=== PATIENT | female | born 1975 | race Two or more races ===

== ENCOUNTER 2018-05-31 11:41 | Outpatient (CLI) | payer OTHER | END 2018-05-31 11:58 | disposition home or self-care (01) | LOC: SONOGRAMA 11:41 | DX: N18.6 End stage renal disease (principal) ==

== ENCOUNTER 2022-01-04 11:39 | Outpatient (CLI) | payer OTHER | END 2022-01-04 11:55 | disposition home or self-care (01) | LOC: SONOGRAMA 11:39 | DX: N18.9 Chronic kidney disease, unspecified (principal); N19 Unspecified kidney failure ==

== ENCOUNTER 2025-02-02 18:52 | Emergency (ER) | payer OTHER ==
[~2025-02-02] VITALS: Ht 157.5 cm; Wt 76.2 kg
[2025-02-02] MEDS ORDERED: XARELTO20 MG PO (19:16)
[2025-02-02] MEDS ORDERED: KEPPRA500 MG PO ×2 (19:16→19:18)
[2025-02-02] MEDS ORDERED: PROTONIX40 M1 PO (19:17)
[2025-02-02] MEDS ORDERED: CEFTRIAXONE SODIUM 1,000 MG VIAL ONE (19:56)
[2025-02-02] MEDS ORDERED: KETOROLAC TROMETHAMINE 30 MG VIAL ONE (19:56)
[2025-02-02] MEDS ORDERED: KETOROLAC TROMETHAMINE 15 MG VIAL IV ONE (20:00)
[2025-02-02] MEDS ORDERED: CEFTRIAXONE SODIUM 1,000 MG VIAL IV ONE (20:00)
[2025-02-02 20:06] LABS: HEMATOCRIT 34.2 % (36.0-45.00); HEMOGLOBIN 11.2 g/dL (12.0-15.00); MEAN CELL VOLUME 86.2 fL (80.00-100.00); MEAN CORPUSCULAR HEMOGLOBIN 28.3 pg (27.00-32.0); MEAN CORPUSCULAR HGB CONC 32.9 g/dl (32.0-36.0); PLATELET COUNT 200 K/uL (150-450); RED BLOOD COUNT 3.96 M/uL (4.00-6.00); RED CELL DISTRIBUTION WIDTH 14.2 % (11.5-14.5)
[2025-02-02 20:28] LABS: ALBUMIN 3.7 gm/dL (3.4-5.0); BILIRUBIN TOTAL 0.19 mg/dL (0.3-1.2); CREATININE SERUM 0.66 mg/dL (0.55-1.02); GFR 94.8; GLOBULINA 3.4 G/DL (2.4-3.5); POTASSIUM 4.32 mEq/L (3.5-5.1); TOTAL PROTEIN 7.1 gm/dL (6.4-8.2)
[2025-02-02 20:59] LABS: URINE APPEARANCE Clear; URINE BILIRRUBIN Negative (NEGATIVE); URINE BLOOD Negative; URINE COLOR Yellow; URINE GLUCOSE Negative (NEGATIVE); URINE KETONE Trace (NEGATIVE); URINE LEUKOCYTE Negative; URINE NITRATE Negative; URINE PROTEIN Negative (NEGATIVE)
[2025-02-02 21:02] LABS: URINE BACTERIA 336.4 uL (0.0-1933); URINE EPITHELIAL CELLS 12.4 uL (0.0-38.8); URINE WBC 2.8 uL (0.0-23.2)
== END 2025-02-02 22:05 | disposition home or self-care (01) ==
LOC: ER 18:52
PROVIDERS: General Practice
DX: R10.9 Unspecified abdominal pain (principal); Z88.6 Allergy status to analgesic agent